=== PATIENT | female | born 1965 | race Caucasian/White ===

== ENCOUNTER 2017-04-18 15:42 | Emergency (ER) | payer OTHER ==
[~2017-04-18] VITALS: Ht 167.6 cm; Wt 145.1 kg
[2017-04-18 15:46] VITALS: BP_SYST 154
[2017-04-18] MEDS ORDERED: ALBUTEROL SULFATE 0.083% 2.5 MG/3 ML VIAL.NEB INH ONE (16:15)
[2017-04-18 16:52] VITALS: BP_SYST 131
== END 2017-04-18 16:52 | disposition home or self-care (01) ==
LOC: SED 15:42
DX: J06.9 Acute upper respiratory infection, unspecified (principal); F17.200 Nicotine dependence, unspecified, uncomplicated; R03.0 Elevated blood-pressure reading, without diagnosis of hypertension; Z90.49 Acquired absence of other specified parts of digestive tract; Z90.89 Acquired absence of other organs
CPT/HCPCS: 71020-TC; 94640; 99284

== ENCOUNTER 2017-11-30 20:27 | Emergency (ER) | payer OTHER ==
[~2017-11-30] VITALS: Ht 170.2 cm; Wt 149.7 kg
[2017-11-30 20:33] VITALS: BP_SYST 153
== END 2017-11-30 20:50 | disposition left against medical advice (07) ==
LOC: SED 20:27
DX: M54.5 Low back pain (principal); M25.559 Pain in unspecified hip

== ENCOUNTER 2018-10-26 19:34 | Emergency (ER) | payer OTHER | END 2018-10-26 19:50 | disposition left against medical advice (07) | LOC: SED 19:34 | DX: R51 Headache (principal); Z53.21 Procedure and treatment not carried out due to patient leaving prior to being seen by health care provider ==

== ENCOUNTER 2019-09-16 13:58 | Emergency (ER) | payer OTHER ==
[~2019-09-16] VITALS: Ht 167.6 cm; Wt 145.1 kg
[2019-09-16 14:00] VITALS: BP_SYST 159
== END 2019-09-16 14:21 | disposition home or self-care (01) ==
LOC: SED 13:58
DX: G43.901 Migraine, unspecified, not intractable, with status migrainosus (principal); Z90.49 Acquired absence of other specified parts of digestive tract
CPT/HCPCS: 99281

== ENCOUNTER 2019-11-08 12:30 | Emergency (ER) | payer OTHER ==
[~2019-11-08] VITALS: Ht 170.2 cm; Wt 145.1 kg
[2019-11-08 12:37] VITALS: BP_SYST 158
== END 2019-11-08 13:30 | disposition left against medical advice (07) ==
LOC: SED 12:30
DX: R51 Headache (principal); Z53.21 Procedure and treatment not carried out due to patient leaving prior to being seen by health care provider